=== PATIENT | male | born 1990 | race Caucasian/White ===

== ENCOUNTER 2024-06-23 13:59 | Emergency (ER) | payer MEDICAID, SELFPAY ==
[2024-06-23 14:17] VITALS: BP 159/103; PULSE 99; RESP 16; TEMP 36.7; O2SAT 100
[2024-06-23] MEDS: tetanus-dipt-pertussis 0.5 mL SDV IM (15:47)
--- NOTE | 2024-06-23 16:09 | XRR_ITS ---
PROCEDURE INFORMATION: Exam: XR Left Hand Exam date and time: 06/23/2024 4:17 PM Age: 34 years old Clinical indication: Injury or trauma; Other: Laceration; Left; Little finger; Additional info: Injury 5th digit TECHNIQUE: Imaging protocol: Radiologic exam of the left hand. Views: 3 or more views. COMPARISON: No relevant prior studies available. FINDINGS: Bones/joints: No fracture or dislocation is seen. No acute osseous abnormality. Soft tissues: No soft tissue radiopaque foreign body is seen. XR/XR hand LT min 3V* [id number] IMPRESSION: No fracture or acute osseous abnormality. No soft tissue radiopaque foreign body is seen.
[2024-06-23] MEDS: BUPivacaine 0.5% INJ 10 mL 4 ML INJECTION (16:50)
[2024-06-23] MEDS: bacitracin ointment Pkt 1 EACH TOPICAL (17:18)
--- NOTE | 2024-06-23 17:24 | W.ED.WOUNDLC ---
HPI - Wound/Laceration General: Chief Complaint: Wound/Laceration Stated Complaint: left pinkie injury Time Seen by Provider: 06/23/24 14:30 Source: patient Mode of arrival: ambulatory Limitations: no limitations History of Present Illness: Patient is a 34-year-old male that presents to the emergency department with a laceration to the fifth digit on the left hand. Patient reports he was using a log splitter today when he got his finger crushed between the log and the frame. He denies any numbness or tingling. Bleeding is controlled at this time. Patient is unsure of his last tetanus immunization so booster was given in the emergency department. Patient appears to have fairly good range of motion of the finger at this time. He presents to the emergency department for further evaluation and treatment. Associated symptoms: Denies chills, fever(s), nausea or vomiting Related Data Allergies Allergy/AdvReac Type Severity Reaction Status Date / Time No Known Allergies Allergy Verified 06/23/24 14:20 Review of Systems General: Reports: 10 or more systems reviewed and unremarkable except in HPI and below Const: Denies: fever(s) or chills ENMT: Denies: throat pain or mouth pain Card: Denies: chest pain Resp: Denies: dyspnea GI: Denies: abdominal pain, nausea or vomiting Musc: Reports: other (Injury to the left little finger with a laceration) Skin/Breast: Reports: other (Laceration to left little finger, palmar aspect) Neuro: Denies: numbness in extremities or weakness in extremities PFS ED PFSH: Medical History (Updated 06/23/24 @ 17:[address]) No pertinent past medical history Social History (Updated 06/23/24 @ 17:[address] [facility]) Smoking and tobacco/nicotine status: current every day tobacco/nicotine user smokeless tobacco Physical Exam Const: COMMON NORMALS: no acute distress and patient oriented x3 EXAM LIMITATIONS: no altered mental status GENERAL APPEARANCE: cooperative HENMT: COMMON NORMALS: normocephalic and atraumatic HEAD & SCALP: normocephalic and atraumatic FACE & SINUS: normal facial exam Eye: COMMON NORMALS: conjunctivae normal CONJUNCTIVA: Yes conjunctivae normal Resp: COMMON NORMALS: normal respiratory effort, No retractions and clear to auscultation bilaterally AUSCULTATION: clear to auscultation bilaterally, no crackles, no rales, no rhonchi and no wheezes Cardio: COMMON NORMALS: regular rate and regular rhythm RATE: regular rate RHYTHM: regular rhythm Back/Pelvis: COMMON NORMALS: no thoracic nor lumbar tenderness and thoraco-lumbar ROM normal Extremity: COMMON NORMALS: no calf tenderness NARRATIVE EXTREMITY EXAM: Laceration on palmar aspect of the fifth digit of the left hand over the DIP joint. Sensation intact, capillary refill less than 2 seconds. GENERAL: No amputation Neuro: COMMON NORMALS: patient oriented x3 Psych: COMMON NORMALS: mental status grossly normal and speech normal ATTITUDE: Yes calm ACTIVITY/MOTOR BEHAVIOR: Yes appropriate eye contact SPEECH: Yes normal speech Skin: TRAUMA: laceration (Fifth digit, left hand 1.5 cm) flap Procedures Laceration Laceration 1: Site: hand (5th digit, left hand) Side (If applicable): left Size (cm): 1.5 Description: irregular Depth: simple, single layer Local Anesthetic: bupivacaine 0.5% Amount of anesthesia used (mL): 3 (Digital block) Pre-repair: wound explored (Foreign bodies removed) and deep structures intact Skin layer closed with: other (Prolene) Size (cm): 5-0 Number of sutures: 3 Technique: simple, interrupted Course Vital Signs: Vital signs: Vital Signs Temperature 98.1 F 06/23/24 14:17 Pulse Rate 99 06/23/24 14:17 Respiratory Rate 16 06/23/24 14:17 Blood Pressure 159/103 06/23/24 14:17 Pulse Oximetry 100 06/23/24 14:17 Oxygen Delivery Me thod Room Air 06/23/24 14:17 MDM - Wound/Laceration Medical Decision Making The patient tolerated the procedure well with no immediate complications. There is no fracture noted on the x-ray. No radiopaque foreign body was noted however there were some small foreign bodies that were cleaned out of the wound at the time of closure. The patient was advised to allow the wound to heal and watch for signs of infection such as red streaking, pus draining, fever etc. Patient was advised to follow-up with a primary care provider for suture removal in 10 days and return to the emergency department with any worsening symptoms. The patient expressed understanding of all discharge instructions. Differential Diagnosis Likely laceration Lab Data Radiology Impressions Hand X-Ray 06/23/24 16:09 IMPRESSION: No fracture or acute osseous abnormality. No soft tissue radiopaque foreign body is seen. All radiology interpretation(s) finalized by discharge Critical Care Time Critical Care Time: Critical Care Time: No Discharge Plan Discharge Patient Disposition: Home Clinical Impression: Laceration of finger of left hand with foreign body, Contusion of finger without damage to nail Condition: Stable Discharge Orders: Discharge ED (Routine); Ordered 06/23/24 Ordered By: Michael Delgadillo Referrals: [facility] [Other] Discharge Diet: Usual diet Discharge Activity: Increase activity as tolerated Patient Instructions: Opioid Safety, Pain Management, Care For Your Stitches (ED) Activity Restrictions/Additional Instructions: Keep the wound clean and dry. Wash the wound daily in warm, running water. Blot it dry afterwards and use [id number] antibiotic ointment as directed. Watch for signs of infection such as red streaking, pus draining, fever etc. Follow-up with your doctor, the urgent care, or the emergency department for suture removal in 10 days. Return to the emergency department with any worsening symptoms or signs of infection. Print Language: French Coding Level of Care Code ED Heavy [employer] for [employer]yles
[2024-06-23 17:39] VITALS: BP 134/90; PULSE 79; RESP 16; O2SAT 97
== END 2024-06-23 17:39 | disposition home or self-care (01) ==
PROVIDERS: Emergency Provider Physician Assistant
DX: S61.227A Laceration with foreign body of left little finger without damage to nail, initial encounter (principal); F17.200 Nicotine dependence, unspecified, uncomplicated; W23.0XXA Caught, crushed, jammed, or pinched between moving objects, initial encounter
CPT/HCPCS: 12031; 12345; 73130; 90471; 90715; 99283; A6446; J3490